=== PATIENT | male | born 1955 | race Caucasian/White ===

== ENCOUNTER → 2017-06-28 | Outpatient (REF) ==
[~2017-06-28] MED LIST: HCTZ 25MG25 MG PO; PERCOCET 325 MG1 TA2 PO
== END ==
LOC: ZLAB.WCH 08:39
DX: Z01.89 Encounter for other specified special examinations (principal)
CPT/HCPCS: G0103

== ENCOUNTER → 2018-08-31 | Outpatient (REF) | LOC: ZLAB.WCH 15:59 | DX: Z01.89 Encounter for other specified special examinations (principal) ==

== ENCOUNTER → 2018-10-29 | Outpatient (REF) ==
[2018-10-29 10:10] LABS: THYROID STIMULATING HORMONE 1.38 uIU/mL (0.465-4.680)
[2018-10-29 10:21] LABS: PSA-TOTAL 1.29 ng/mL (0-4)
== END ==
LOC: ZLAB.WCH 09:22
PROVIDERS: Physician Assistant
DX: Z01.89 Encounter for other specified special examinations (principal)
CPT/HCPCS: G0103

== ENCOUNTER 2019-07-11 15:10 | Emergency (ER) | payer BC ==
[~2019-07-11] VITALS: Ht 172.7 cm; Wt 111.4 kg
[2019-07-11 15:39] VITALS: PULSE 101; TEMP 98.7
[2019-07-11 16:10] LABS: BASO # 0.1 (0.0-0.2); BASO % 0.7 % (0.0-2.0); EOS # 0.5 (0.0-0.7); EOS % 5.3 % (0-4.0); GRAN # 6.3 (1.4-6.5); GRAN % 62.8 % (42.2-75.2); HEMATOCRIT 51.5 % (42.0-52.0); HEMOGLOBIN 17.4 g/dl (13.5-18.0); LYMPH % 19.7 % (20.0-51.0); MEAN CELL VOLUME 89 fl (80.0-100.0); MEAN CORPUSCULAR HEMOGLOBIN 30 pg (27.0-31.0); MEAN CORPUSCULAR HGB CONC 34 g/dl (33.0-37.0); MEAN PLATELET VOLUME 10.3 fl (7.4-10.4); MONO # 1.1 (0.1-0.6); MONO % 11.2 % (1.7-9.3); PLATELET COUNT 267 K/mm3 (130-400); RED BLOOD COUNT 5.77 M/mm3 (4.20-5.60); REDCELL DISTRIBUTION WIDTH-CV 13.2 % (11.5-14.5)
[2019-07-11 16:22] LABS: ALBUMIN 4.1 gm/dL (3.5-5.0); BILIRUBIN,TOTAL 0.6 mg/dL (0.0-1.0); CALCIUM 9.3 mg/dL (8.4-10.2); CREATININE, serum 0.82 (0.66-1.25); POTASSIUM 3.7 mmol/L (3.4-5.0); TOTAL PROTEIN 7.4 gm/dL (6.4-8.2)
[2019-07-11 16:33] LABS: TROPONIN-I 0.013 ng/mL (0.000-0.035)
[2019-07-11] MEDS ORDERED: FLOMAX 0.40.4 MG/CAP PO (16:50)
[2019-07-11] MEDS ORDERED: PROSCAR 5MG5 MG PO (16:51)
[2019-07-11] MEDS ORDERED: PROAIR HFA0.09 MG/AC IH (18:40)
[2019-07-11] MEDS ORDERED: LASIX 20MG TABL20 MG PO (18:40)
[2019-07-11] MEDS ORDERED: K-DUR 10 MEQ T10 MEQ PO (18:40)
[2019-07-11 18:51] VITALS: BP 132/89
== END 2019-07-11 18:51 | disposition home or self-care (01) ==
LOC: COL.ER 15:10
PROVIDERS: Emergency Medicine
DX: R06.02 Shortness of breath (principal); I10 Essential (primary) hypertension
CPT/HCPCS: J1100

== ENCOUNTER → 2019-08-20 | Day surgery (SDC) | payer OTHER ==
[~2019-08-20] VITALS: Ht 175.3 cm; Wt 114.9 kg
[2019-08-20] VITALS (15 sets, daily range): BP systolic 106–152; BP diastolic 79–116; PULSE 84–104; TEMP 98.4
[~2019-08-20] MED LIST changes: +ALDACTONE 25MG25 M1 PO; +ASPIRIN 81M81 MG/TA2 PO; +FLOMAX 0.40.4 MG/CAP PO; +HCTZ 25MG TAB25 MG PO; -HCTZ 25MG25 MG PO; +K-DUR 10 MEQ T10 MEQ PO; +LASIX 20MG TABL20 MG PO; +NORVASC 5MG5 MG/TAB PO; +PRAVACHOL 20MG20 MG PO; +PROAIR HFA0.09 MG/AC IH; +PROSCAR 5MG5 MG PO
[2019-08-20 07:19] LABS: MEAN CELL VOLUME 90 fl (80.0-100.0); MEAN CORPUSCULAR HGB CONC 34 g/dl (33.0-37.0); MEAN PLATELET VOLUME 10.5 fl (7.4-10.4); PLATELET COUNT 286 K/mm3 (130-400); RED BLOOD COUNT 5.95 M/mm3 (4.20-5.60); REDCELL DISTRIBUTION WIDTH-CV 12.8 % (11.5-14.5)
[2019-08-20 07:23] LABS: HEMATOCRIT 53.7 % (42.0-52.0); HEMOGLOBIN 18.1 g/dl (13.5-18.0); MEAN CORPUSCULAR HEMOGLOBIN 30 pg (27.0-31.0)
[2019-08-20 07:29] LABS: PROTHROMBIN TIME 11.2 SECONDS (9.7-12.8)
[2019-08-20 07:33] LABS: CALCIUM 9.4 mg/dL (8.4-10.2); CREATININE, serum 0.82 (0.66-1.25); POTASSIUM 4.3 mmol/L (3.4-5.0)
--- NOTE | 2019-08-20 09:02 | NUR ---
SEE MERGE DOCUMENTATION FOR MEDICATION ADMINISTRATION TIMES AND INTRA/POST PROCEDURE SEDATION ASSESSMENTS.
--- NOTE | 2019-08-20 10:45 | NUR ---
Pt back from laborer hide house, bedside report received from Wilfrido NGUYEN. Pt is awake and alert, p,w,d, resp reg and unlabores, satting 92% on room air. Star Montanez at bs. cms intact to extremities, groin site looks good without evidence of hematoma or bleeding, site dressed with clean dry gauze and tegaderm. Pt aware of POC for BR x 4 hrs.
--- NOTE | 2019-08-20 10:47 | NUR ---
Pt transferred to 14 at this time. VS's monitors connected; all VS's WNL at this time. Pt A&O x3. No s/sx of distress noted. Bedside handoff to WENDY Avendano. Right groin site assessed. Dressing dry and intact. Site soft to palpation. No bleeding/bruising noted. Pt denies pain or sensation changes to right groin or leg. DP pulse +2. All questions answered at this time.
--- NOTE | 2019-08-20 11:20 | NUR ---
small amt blood noted on distal and lateral portion of gauze dressing, no hematoma palpated, distal pulses strong. manual pressure held for 10 minutes, union laborer rn to bs to evaluate and apply clean sterile drssing, no active bleeding noted at site. Lisa Myers aware, he instructed Sara NGUYEN over the phone to begin 4 hr bedrest when hemostsis acheived.
--- NOTE | 2019-08-20 11:30 | NUR ---
WAS CALLED TO PATIENT BEDSIDE FOR OOZING GROIN. WHEN I GOT THERE I REMOVED THE DRESSING WHICH HAD A SMALL AMOUNT OF BLOOD ON IT. AT THIS POINT IT WAS NOT OOZING/BLEEDING AND THERE WAS NO HEMATOMA PRESENT. I HELD PRESSURE FOR AROUND 5 MINUTES TO MAKE SURE THERE WAS NOT GOING TO BE ANYMORE OOZING AND THEN REDRESSED THE SITE WITH STERILE GAUZE AND TEGADERM. WHEN I LEFT THE ROOM, THE GROIN WAS FREE FROM OOZE AND HEMATOMA. RAY COSTA, RT
--- NOTE | 2019-08-20 12:15 | NUR ---
Pt eating some scrambled eggs, pt also needing to void.. pt log rolled to rt side. was able to void appox 300 cc. log rolled back into position with no problem. no bleeding orhematoma, cms intact. wctm.
--- NOTE | 2019-08-20 12:30 | NUR ---
Pt's sats have gradually been trending downward, with pt now satting as low as 84% with a good waveform, diastolic blood pressures have been persistently elevated. Pt was placed on 2l/nc with increase in O2 sats to 96%, and pt reported felt better. Dr. Myers was paged. Spoke with Dr. Myers regarding pt's hypoxia and bp. Telephone order received to administer 20 mg IV lasix, and have patient follow up with primary care about O2 as pt has been chronically low for some time. I plan to ambulate pt and check room air sats with ambulation after he is cleared of bed rest.
--- NOTE | 2019-08-20 16:00 | NUR ---
Pt is up with assist, he is steady on his feet, no dizziness or other concerns, cms remains intact to rle, he does complain of some tenderness to lower abd, specifically to puncture site, however I can not palpate any hematoma, area is soft, no bleeding or bruising is noted, pt denies any back pain. pt ambulates around rn station with no problem, when pulse ox probe is placed he initially is satting 84%, then recovers to 89-91% on room air. Pt has a f/u appt with pulmonology on thursday 08/23 at 1615 of which he is aware. DC instructions were reviewed with patient and neice, no questions or concerns at time of departure. escorted to exit via wheelchair.
== END ==
LOC: COL.CAR 06:30
PROVIDERS: Internal Medicine Cardiovascular Disease
DX: I27.20 Pulmonary hypertension, unspecified (principal); R93.1 Abnormal findings on diagnostic imaging of heart and coronary circulation; I25.10 Atherosclerotic heart disease of native coronary artery without angina pectoris; I10 Essential (primary) hypertension; Z79.899 Other long term (current) drug therapy; Z80.1 Family history of malignant neoplasm of trachea, bronchus and lung
CPT/HCPCS: C1760; C1769; C1894; J0153; J1644; J1940; J2250; Q9967

== ENCOUNTER → 2019-11-07 | Outpatient (CLI) | payer OTHER | LOC: COL.VAS 09:53 | DX: I27.21 Secondary pulmonary arterial hypertension (principal); I51.7 Cardiomegaly ==

== ENCOUNTER 2019-11-25 09:59 | Day surgery (SDC) | payer OTHER ==
[2019-11-25] VITALS (7 sets, daily range): BP systolic 102–121; BP diastolic 66–77; PULSE 91–109; TEMP 98–98.9
[~2019-11-25] VITALS: Ht 172.7 cm; Wt 110.2 kg
[2019-11-25] MEDS ORDERED: NORVASC 5MG5 MG/TAB PO (10:51)
[2019-11-25] MEDS ORDERED: ASPIRIN E.C. 8181 MG PO (10:51)
[2019-11-25] MEDS ORDERED: LIPITOR20 MG PO (10:52)
[2019-11-25] MEDS ORDERED: ALDACTONE 25MG25 M1 PO (10:53)
--- NOTE | 2019-11-25 10:54 | NUR ---
TO RM 8 AT 10:11- CALL LIGHT IN REACH
[2019-11-25] MEDS ORDERED: TYLENOL 325MG325 MG PO (12:54)
--- NOTE | 2019-11-25 13:34 | NUR ---
TO RM 8 PER CART FROM PACU. DROWSY AND ANSWERS QUESTIONS COHERENTLY. WEARING O2 OXYMASK AND SATS 94%. DENIES NAUSEA OR VOMITING. DENIES PAIN OR DISCOMFORT.
[2019-11-25] MEDS ORDERED: AYR SALINE MIST50 ML NS (13:48)
--- NOTE | 2019-11-25 13:50 | NUR ---
MORE AWAKE AND DISCONTINUED O2 MASK- 02 AT 92% AND AT TIMES NEED TO REMIND PATIENT TO TAKE DEEP BREATHS. TAKING SIPS OF WATER.
--- NOTE | 2019-11-25 14:05 | NUR ---
RECEIVED 2ND CUP OF WATER AND DESHAWN CRACKERS.
--- NOTE | 2019-11-25 14:20 | NUR ---
ATE 100% AND TOLERATED WELL
--- NOTE | 2019-11-25 14:30 | NUR ---
AMBULATED TO BATHROOM WITH ASSIST. VOIDED AND TOLERATED WELL.
--- NOTE | 2019-11-25 14:40 | NUR ---
RECEIVED DISCHARGE INSTRUCTIONS AND VERBALIZED UNDERSTANDING. DISCONTINUED IV AND INT- CATHETER INTACT.
--- NOTE | 2019-11-25 14:50 | NUR ---
DISCHARGED PER WC BY NURSING STAFF TO PRIVATE CAR IN CARE OF LILIA DORSEY
== END 2019-11-25 15:00 | disposition home or self-care (01) ==
LOC: SDCO 09:59
DX: D14.0 Benign neoplasm of middle ear, nasal cavity and accessory sinuses (principal); G47.33 Obstructive sleep apnea (adult) (pediatric); I10 Essential (primary) hypertension; Z79.899 Other long term (current) drug therapy; Z79.82 Long term (current) use of aspirin; E66.9 Obesity, unspecified; Z68.37 Body mass index [BMI] 37.0-37.9, adult; J30.9 Allergic rhinitis, unspecified; G47.10 Hypersomnia, unspecified; Z80.1 Family history of malignant neoplasm of trachea, bronchus and lung; R09.02 Hypoxemia; I27.21 Secondary pulmonary arterial hypertension; J33.8 Other polyp of sinus
CPT/HCPCS: J1100; J2250; J2370; J2405; J2704; J7050; J7120

== ENCOUNTER → 2020-12-11 | Outpatient (CLI) | payer MEDICARE, OTHER ==
[~2020-12-11] MED LIST changes: +ASPIRIN E.C. 8181 MG PO; +AYR SALINE MIST50 ML NS; +LIPITOR20 MG PO; +TYLENOL 325MG325 MG PO
== END ==
LOC: COL.VAS 12-10 14:30
DX: I51.7 Cardiomegaly (principal); I34.0 Nonrheumatic mitral (valve) insufficiency

== ENCOUNTER 2021-04-05 14:50 | Outpatient (RCR) | payer OTHER | END 2021-07-04 | disposition home or self-care (01) | LOC: WSOH | DX: S20.222A Contusion of left back wall of thorax, initial encounter (principal); I10 Essential (primary) hypertension; Z96.653 Presence of artificial knee joint, bilateral; Y99.0 Civilian activity done for income or pay ==